=== PATIENT | female | born 1950 | race Caucasian/White ===

== ENCOUNTER → 2020-04-05 | Outpatient (CLI) | payer MEDICARE, OTHER ==
[~2020-04-05] MED LIST: PROTONIX 40 MG40 M1 PO; ZOFRAN4 MG PO
== END ==
LOC: KOH-I 12:21
DX: M54.6 Pain in thoracic spine (principal); M48.07 Spinal stenosis, lumbosacral region
CPT/HCPCS: 72070; 72110

== ENCOUNTER → 2020-09-17 | Outpatient (CLI) | payer MEDICARE, OTHER | LOC: KOH-I 09-13 11:30 | DX: C44.219 Basal cell carcinoma of skin of left ear and external auricular canal (principal); H74.8X1 Other specified disorders of right middle ear and mastoid; Z98.890 Other specified postprocedural states; M79.89 Other specified soft tissue disorders | CPT/HCPCS: 70480 ==

== ENCOUNTER → 2021-04-27 | Outpatient (CLI) | payer MEDICARE, OTHER | LOC: EXRD 13:19 | DX: Z78.0 Asymptomatic menopausal state (principal); M81.0 Age-related osteoporosis without current pathological fracture; M85.852 Other specified disorders of bone density and structure, left thigh | CPT/HCPCS: 77080 ==

== ENCOUNTER 2021-09-05 23:30 | Emergency (ER) | payer MEDICARE, OTHER | END 2021-09-06 02:15 | disposition left against medical advice (07) | LOC: ER1 23:30 | DX: Z53.21 Procedure and treatment not carried out due to patient leaving prior to being seen by health care provider (principal) ==